=== PATIENT | female | born 1995 | race American Indian/Alaskan Native ===

== ENCOUNTER 2021-11-03 15:08 | Emergency (ER) | payer SELFPAY ==
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
[2021-11-03 16:45] VITALS: BP 131/65
== END 2021-11-03 16:30 | disposition home or self-care (01) ==
LOC: ED 15:08 → EEVIPCON 15:08 → ED 16:30
DX: Z04.1 Encounter for examination and observation following transport accident (principal); V89.2XXA Person injured in unspecified motor-vehicle accident, traffic, initial encounter; Y93.89 Activity, other specified; Y92.488 Other paved roadways as the place of occurrence of the external cause; Y99.8 Other external cause status
CPT/HCPCS: 99282